=== PATIENT | male | born 1970 | race African-American/Black ===

== ENCOUNTER 2024-04-25 04:13 | Emergency (ER) | payer OTHER ==
[~2024-04-25] VITALS: Ht 177.8 cm; Wt 86.2 kg
[2024-04-25 04:16] VITALS: BP 168/101; TEMP 98.1; O2SAT 98
[2024-04-25] MEDS ORDERED: IBUPROFEN 400 MG TABLET ONE (04:35)
[2024-04-25] MEDS: IBUPROFEN 400 MG TABLET PO ONE (04:40)
== END 2024-04-25 04:38 | disposition home or self-care (01) ==
LOC: ER 04:13
DX: M79.672 Pain in left foot (principal); M79.671 Pain in right foot; Z59.00 Homelessness unspecified